=== PATIENT | male | born 1955 | race Hispanic/Latino ===

== ENCOUNTER 2017-11-23 13:45 | Inpatient (IN) | payer OTHER ==
[~2017-11-23] VITALS: Ht 170.2 cm; Wt 89.1 kg
[2017-11-23 15:17] VITALS: BP 143/76
[2017-11-23 15:44] LABS: APPEARANCE,URINE Clear (CLEAR); BILIRUBIN,URINE Negative (NEGATIVE); COLOR,URINE Yellow (YELLOW); GLUCOSE, URINE (UA) Negative (NEGATIVE); KETONES,URINE Negative (NEGATIVE); LEUKOCYTE ESTERASE ,URINE Negative (NEGATIVE); NITRATE,URINE Negative (NEGATIVE); OCCULT BLOOD,URINE Negative (NEGATIVE); PH,URINE 5.5 (5.0-8.0); PROTEIN,URINE Negative (NEGATIVE); UROBILINOGEN,URINE 0.2 mg/dL (0.2-1.0)
[2017-11-23] MEDS ORDERED: MELO-108 PO (15:46)
[2017-11-23] MEDS ORDERED: TYL3 PO (15:46)
[2017-11-23] MEDS ORDERED: IBUP-2071 PO (15:46)
[2017-11-23] MEDS ORDERED: BACL10TA PO (15:46)
[2017-11-26] VITALS (23 sets, daily range): BP systolic 117–160; BP diastolic 57–88
[2017-11-26] MEDS ORDERED: LACTATED RINGERS 1000ML 1,000 ML IV ONE (07:49)
[2017-11-26] MEDS ORDERED: ACETAMINOPHEN EXTRA STRENGTH 500 MG TABLET ONE (08:58)
[2017-11-26] MEDS ORDERED: METOCLOPRAMIDE 10 MG/2 ML VIAL ONE (08:58)
[2017-11-26] MEDS ORDERED: KETOROLAC TROMETHAMINE 15MG/ML ONE (08:59)
[2017-11-26] MEDS ORDERED: CELECOXIB 200 MG CAP ONE (08:59)
[2017-11-26] MEDS ORDERED: OXYCODONE HCL 10 MG TAB.SR.12H PO ONE (08:59)
[2017-11-26] MEDS: CEFAZOLIN SODIUM 1 GM VIAL ONE ×2 (09:30→10:15)
[2017-11-26] MEDS ORDERED: LIDOCAINE PF 2% 5ML ABBOJECT ONE (09:51)
[2017-11-26] MEDS ORDERED: DEXAMETHASONE SOD PHOSPHATE 10MG/ML 1ML VIAL ONE (09:52)
[2017-11-26] MEDS ORDERED: SUCCINYLCHOLINE 200MG/10ML SYR ONE (09:52)
[2017-11-26] MEDS ORDERED: ONDANSETRON HCL 4 MG/2 ML VIAL ONE (09:52)
[2017-11-26] MEDS ORDERED: NEOSTIGMINE 5MG/5ML SYR IV ONE (09:52)
[2017-11-26] MEDS ORDERED: PROPOFOL 10 MG/ML 20ML VIAL IV ONE (09:52)
[2017-11-26] MEDS ORDERED: MIDAZOLAM HCL 1 MG/ML 2ML VIAL ONE (09:53)
[2017-11-26] MEDS ORDERED: ROCURONIUM 10MG/1ML SYR 10 MG/ML ML ONE (09:53)
[2017-11-26] MEDS ORDERED: FENTANYL CITRATE PF 50 MCG/1 ML 2ML VIAL ONE ×2 (09:54→10:41)
[2017-11-26] MEDS: TRANEXAMIC ACID 1000MG/10ML IV ONE ×2 (10:06→12:20)
[2017-11-26] MEDS ORDERED: BUPIVACAINE/EPI/PF 0.5% 30ML VIAL IJ ONE (10:06)
[2017-11-26] MEDS ORDERED: CEFAZOLIN SODIUM 1 GM VIAL ONE (10:44)
[2017-11-26] MEDS ORDERED: TEMAZEPAM 15 MG CAPSULE PO PRN (12:00)
[2017-11-26] MEDS ORDERED: CALCIUM CARBONATE 500 MG TABLET PO PRN (12:00)
[2017-11-26] MEDS ORDERED: DiphenhydrAMINE HCL 50 MG/ML VIAL IVP PRN (12:00)
[2017-11-26] MEDS ORDERED: POTASSIUM CHLORIDE 20MEQ/100ML 100 ML IV PRN (12:00)
[2017-11-26] MEDS ORDERED: POTASSIUM CHLORIDE 20 MEQ ERTAB PO PRN (12:00)
[2017-11-26] MEDS ORDERED: POTASSIUM CHLORIDE 10% ELIXIR 20 MEQ/15 ML UDCUP PO PRN (12:00)
[2017-11-26] MEDS ORDERED: ONDANSETRON HCL 4 MG/2 ML VIAL IVP PRN (12:00)
[2017-11-26] MEDS: ACETAMINOPHEN EXTRA STRENGTH 500 MG TABLET PO SCH ×2 (12:00→19:45)
[2017-11-26] MEDS ORDERED: OXYCODONE HCL 5 MG TAB PO PRN (12:00)
[2017-11-26] MEDS ORDERED: LIDOCAINE HCL-MPF 1% 2ML VIAL IVP PRN (12:00)
[2017-11-26] MEDS ORDERED: FERROUS FUMARATE 324 MG TABLET PO PRN (12:00)
[2017-11-26] MEDS ORDERED: MEPERIDINE-PF 25 MG/ML SYG ONE ×2 (12:32→12:44)
[2017-11-26] MEDS: SODIUM CHLORIDE 0.9% 1000ML 1,000 ML IV SCH ×2 (13:15→22:40)
[2017-11-26] MEDS: KETOROLAC TROMETHAMINE 15MG/ML IV PRN (13:45)
[2017-11-26] MEDS: OXYCODONE HCL 5 MG TAB PO PRN (13:46)
[2017-11-26] MEDS: CEFAZOLIN SODIUM 1 GM VIAL IVP SCH (18:01)
[2017-11-26] MEDS: FAMOTIDINE 20MG TAB 20 MG TAB PO SCH (19:44)
[2017-11-26] MEDS: ASPIRIN 325 MG TABLET PO SCH (19:44)
[2017-11-26] MEDS: CELECOXIB 200 MG CAP PO SCH (19:44)
[2017-11-26] MEDS: PREGABALIN 25 MG CAP PO SCH (19:44)
[2017-11-26] MEDS ORDERED: BACLOFEN 10 MG TABLET PO SCH (21:00)
[2017-11-27 00:04] VITALS: BP 139/80
[2017-11-27] MEDS: OXYCODONE HCL 5 MG TAB PO PRN ×3 (00:28→18:40)
[2017-11-27] MEDS: CEFAZOLIN SODIUM 1 GM VIAL IVP SCH (00:29)
[2017-11-27] MEDS: KETOROLAC TROMETHAMINE 15MG/ML IV PRN ×2 (01:59→10:47)
[2017-11-27] MEDS: ACETAMINOPHEN EXTRA STRENGTH 500 MG TABLET PO SCH ×2 (03:19→14:46)
[2017-11-27] MEDS: TRAMADOL HCL 50 MG TABLET PO PRN ×2 (03:23→05:17)
[2017-11-27 04:01] LABS: HEMATOCRIT 33.4 % (42-54); MEAN CORPUSCULAR HEMOGLOBIN 29.5 pg (27.0-33.0); MEAN CORPUSCULAR HGB CONC 33.2 g/dL (32.0-36.0); PLATELET COUNT (AUTO) 310 K/uL (130-400); RED BLOOD CELL COUNT(AUTO) 3.75 MIL/uL (4.50-6.20); RED CELL DISTRIBUTION WIDTH 13.2 % (11.0-15.5)
[2017-11-27 04:04] VITALS: BP 126/79
[2017-11-27 04:14] LABS: CREATININE 0.8 mg/dL (0.5-1.5); POTASSIUM 4.4 mmol/L (3.5-5.1)
[2017-11-27] MEDS: SODIUM CHLORIDE 0.9% 1000ML 1,000 ML IV SCH (07:51)
[2017-11-27 08:11] VITALS: BP 137/76
[2017-11-27] MEDS ORDERED: TAMSULOSIN HCL 0.4 MG CAP.ER.24H PO SCH (09:00)
[2017-11-27] MEDS ORDERED: POLYETHYLENE GLYCOL 3350 17 GM POWD.PACK PO SCH (09:00)
[2017-11-27] MEDS: ASPIRIN 325 MG TABLET PO SCH (10:45)
[2017-11-27] MEDS: PREGABALIN 25 MG CAP PO SCH (10:46)
[2017-11-27] MEDS: CELECOXIB 200 MG CAP PO SCH (10:46)
[2017-11-27] MEDS: FAMOTIDINE 20MG TAB 20 MG TAB PO SCH (10:47)
[2017-11-27 11:25] VITALS: BP 118/68
[2017-11-27 16:25] VITALS: BP 111/63
[2017-11-27] MEDS ORDERED: HYDR-4457 PO (19:33)
[2017-11-27] MEDS ORDERED: ASPI-1012 PO (19:33)
[2017-11-29] MEDS ORDERED: BISACODYL 10 MG SUPP.RECT RC PRN (12:00)
== END 2017-11-27 20:59 | DRG 470 ==
LOC: EDSTATUS 13:45 → DAHIP 11-26 07:12 → 4AH 11-26 12:56
PROVIDERS: ADMIT Orthopaedic Surgery; ATTEND Orthopaedic Surgery
PROC: 0SRC0J9 Replacement of Right Knee Joint with Synthetic Substitute, Cemented, Open Approach (ICD-10-PCS; principal; 2017-11-26 09:50)
DX: M17.11 Unilateral primary osteoarthritis, right knee (principal); K21.9 Gastro-esophageal reflux disease without esophagitis; Z96.652 Presence of left artificial knee joint; E66.9 Obesity, unspecified; Z68.30 Body mass index [BMI] 30.0-30.9, adult
CPT/HCPCS: 36415; 80048; 81003; 85027; 88305; 88311; 96374; 96375; J0330; J0690; J1100; J1885; J2001; J2175; J2250; J2405; J2704; J2710; J2765; J3010; J3490; J7120

== ENCOUNTER 2019-01-14 05:29 | Emergency (ER) | payer OTHER ==
[~2019-01-14 05:29] MED LIST: ASPI-1012 PO; BACL10TA PO; HYDR-4457 PO
[2019-01-14] MEDS ORDERED: HYDROCODONE/ACETAMINOPHEN 5/325 MG TAB ONE (06:10)
[2019-01-14] MEDS ORDERED: ONDANSETRON HCL 4 MG/2 ML VIAL ONE (07:27)
== END 2019-01-14 07:23 | disposition home or self-care (01) ==
LOC: EDH 05:29
DX: S40.012A Contusion of left shoulder, initial encounter (principal); S80.02XA Contusion of left knee, initial encounter; S80.01XA Contusion of right knee, initial encounter; V49.40XA Driver injured in collision with unspecified motor vehicles in traffic accident, initial encounter; Y93.89 Activity, other specified; Y92.89 Other specified places as the place of occurrence of the external cause; Y99.8 Other external cause status
CPT/HCPCS: 73030; 73562 ×2; 99284; J2405

== ENCOUNTER → 2019-12-11 | Outpatient (CLI) | payer OTHER | END | disposition home or self-care (01) | LOC: RAH 15:35 | PROVIDERS: ATTEND Physical Medicine & Rehabilitation | DX: M54.2 Cervicalgia (principal); M54.5 Low back pain | CPT/HCPCS: 72040; 72100 ==

== ENCOUNTER → 2019-12-12 | Outpatient (CLI) | payer OTHER | END | disposition home or self-care (01) | LOC: RAH 13:42 | PROVIDERS: ATTEND Physical Medicine & Rehabilitation | DX: M19.012 Primary osteoarthritis, left shoulder (principal); M25.512 Pain in left shoulder | CPT/HCPCS: 73030 ==

== ENCOUNTER → 2020-01-05 | Outpatient (CLI) | payer OTHER | END | disposition home or self-care (01) | LOC: RAH 14:01 | PROVIDERS: ATTEND Physical Medicine & Rehabilitation | DX: M47.27 Other spondylosis with radiculopathy, lumbosacral region (principal); M48.07 Spinal stenosis, lumbosacral region | CPT/HCPCS: 72148 ==

== ENCOUNTER → 2022-08-31 | Outpatient (CLI) | payer OTHER | END | disposition home or self-care (01) | LOC: RAH 12:38 | PROVIDERS: ATTEND Student in an Organized Health Care Education/Training Program | DX: M19.09 Primary osteoarthritis, other specified site (principal); T84.092A Other mechanical complication of internal right knee prosthesis, initial encounter | CPT/HCPCS: 78315; A9503 ==

== ENCOUNTER → 2023-05-23 | Outpatient (CLI) | payer OTHER ==
[~2023-05-23] MED LIST changes: -ASPI-1012 PO; +ASPI-1026 PO; -BACL10TA PO; +CYCL-309 PO; +DOCU-116 PO; +GABA100C PO; +HYDR-4060 PO; -HYDR-4457 PO; +OMEP40CA21 PO; +SEMA0.258 SQ
== END | disposition home or self-care (01) ==
LOC: RAH 14:41
PROVIDERS: ATTEND Physician Assistant Medical
DX: N64.4 Mastodynia (principal)
CPT/HCPCS: 76642